=== PATIENT | female | born 1950 | race Caucasian/White ===

== ENCOUNTER → 2017-09-04 13:39 | Outpatient (REF) | payer MEDICARE, OTHER, SELFPAY | LOC: LAB 13:39 | PROVIDERS: Family Provider Family Medicine; PCP Family Medicine; Visit Provider Nurse Practitioner Family | DX: L60.8 Other nail disorders (principal) | CPT/HCPCS: 87070; 87075; 87077; 87186; 87205 ==

== ENCOUNTER → 2018-08-19 08:41 | Outpatient (CLI) | payer MEDICARE, OTHER, SELFPAY ==
--- NOTE | 2018-08-19 | DI.MG.S_ITS ---
BILATERAL DIGITAL SCREENING MAMMOGRAM 3D/2D WITH CAD: 08/19/2018 CLINICAL: Routine screening. Comparison is made to exams dated: 08/20/2016 mammogram, 07/06/2015 mammogram, 05/06/2014 mammogram, 12/10/2012 mammogram, 10/03/2011 mammogram, and 08/10/2010 mammogram - [facility]. The tissue of both breasts is heterogeneously dense. This may lower the sensitivity of mammography. Current study was also evaluated with a Computer Aided Detection (CAD) system. There is a circular mole marker on the left breast. There is a linear scar marker overlying the left breast. No significant masses, calcifications, or other findings are seen in either breast. There has been no significant interval change. IMPRESSION: NEGATIVE There is no mammographic evidence of malignancy. A 1 year screening mammogram is recommended. This exam was interpreted at Station ID: [id number]. NOTE: For mammograms, a report in lay terms will be sent to the patient. Approximately 15% of breast malignancies will not be visualized mammographically. In the management of a palpable breast mass, a negative mammogram must not discourage biopsy of a clinically suspicious lesion. Electronically Signed By: Eduard Ochoa M.D. ecl/:08/20/2018 12:04:33 letter sent: Normal Exam ACR BI-RADS Category 1: Negative [id number]
== END ==
PROVIDERS: PCP Family Medicine; Visit Provider Family Medicine
DX: Z12.31 Encounter for screening mammogram for malignant neoplasm of breast (principal)
CPT/HCPCS: 77063; 77067

== ENCOUNTER → 2018-12-17 19:48 | Outpatient (CLI) | payer MEDICARE, OTHER, SELFPAY | PROVIDERS: PCP Family Medicine; Visit Provider Physician Assistant | DX: N30.01 Acute cystitis with hematuria (principal) | CPT/HCPCS: 87077; 87086; 87186 ==

== ENCOUNTER → 2019-02-15 09:36 | Outpatient (CLI) | payer MEDICARE, OTHER, SELFPAY ==
--- NOTE | 2019-02-15 | DI.US.S_ITS ---
ULTRASOUND OF LEFT BREAST: 02/15/2019 CLINICAL: Palpable left breast lump. Comparison is made to exams dated: 08/19/2018 mammogram, 08/20/2016 mammogram, 07/06/2015 mammogram, and 05/06/2014 mammogram - [facility]. Real-time ultrasound of the left breast was performed. Smith scale images of the real-time examination were reviewed. No significant abnormalities were seen sonographically in the left breast. IMPRESSION: NEGATIVE There is no sonographic evidence of malignancy. There is no abnormality seen in the left breast to correspond with the area of clinical concern and palpable abnormality in the anterior depth in the upper outer quadrant, however, clinical followup is recommended for persistent or worsening symptoms. Return to annual mammogram screening schedule is recommended. Bilateral screening mammogram is due in approximately six months. This exam was interpreted at Station ID: [id number]. Electronically Signed By: Mauricio Bailey M.D. aty/:02/15/2019 16:34:13 letter sent: Normal Exam Ultrasound BI-RADS: 1 Negative
--- NOTE | 2019-02-15 | DI.MG.S_ITS ---
UNILATERAL LEFT DIGITAL DIAGNOSTIC MAMMOGRAM 3D/2D: 02/15/2019 CLINICAL: Left breast lump. Comparison is made to exams dated: 08/19/2018 mammogram, 08/20/2016 mammogram, 07/06/2015 mammogram, 12/10/2012 mammogram, 10/03/2011 mammogram, and 08/10/2010 mammogram - [facility]. The tissue of left breast is heterogeneously dense. This may lower the sensitivity of mammography. No significant masses, calcifications, or other findings are seen in the breast. IMPRESSION: INCOMPLETE: NEEDS ADDITIONAL IMAGING EVALUATION There is no abnormality seen in the left breast to correspond with the area of clinical concern and palpable abnormality indicated by triangular marker in the anterior depth in the upper outer quadrant, however, ultrasound is recommended for further evaluation which is scheduled to immediately follow this examination. This exam was interpreted at Station ID: [id number]. NOTE: For mammograms, a report in lay terms will be sent to the patient. Approximately 15% of breast malignancies will not be visualized mammographically. In the management of a palpable breast mass, a negative mammogram must not discourage biopsy of a clinically suspicious lesion. Electronically Signed By: Mauricio Bailey M.D. aty/:02/15/2019 16:31:21 ACR BI-RADS Category 0: Incomplete [id number]
== END ==
PROVIDERS: PCP Family Medicine; Visit Provider Family Medicine
DX: R92.8 Other abnormal and inconclusive findings on diagnostic imaging of breast (principal); N63.20 Unspecified lump in the left breast, unspecified quadrant
CPT/HCPCS: 76642; 77065; G0279

== ENCOUNTER → 2019-09-29 16:06 | Outpatient (CLI) | payer MEDICARE, OTHER, SELFPAY ==
--- NOTE | 2019-09-29 | DI.MG.S_ITS ---
BILATERAL DIGITAL SCREENING MAMMOGRAM 3D/2D WITH CAD: 09/29/2019 CLINICAL: Routine screening. Comparison is made to exams dated: 02/15/2019 mammogram, 08/19/2018 mammogram, 08/20/2016 mammogram, and 07/06/2015 mammogram - [facility]. The tissue of both breasts is heterogeneously dense. This may lower the sensitivity of mammography. Current study was also evaluated with a Computer Aided Detection (CAD) system. There are grouped fine punctate calcifications in the right breast at 7 o'clock posterior depth. These are more prominent and increased in number. No other significant masses, calcifications, or other findings are seen in either breast. IMPRESSION: INCOMPLETE: NEEDS ADDITIONAL IMAGING EVALUATION The grouped fine punctate calcifications in the right breast are indeterminate. Mediolateral, spot magnification, and additional views are recommended. This exam was interpreted at Station ID: [id number]. NOTE: For mammograms, a report in lay terms will be sent to the patient. Approximately 15% of breast malignancies will not be visualized mammographically. In the management of a palpable breast mass, a negative mammogram must not discourage biopsy of a clinically suspicious lesion. Electronically Signed By: Mauricio johnson/leroy:09/29/2019 18:10:15 letter sent: Additional Imaging Needed ACR BI-RADS Category 0: Incomplete [id number]
== END ==
PROVIDERS: PCP Family Medicine; Referring Provider Family Medicine; Visit Provider Family Medicine
DX: Z12.31 Encounter for screening mammogram for malignant neoplasm of breast (principal)
CPT/HCPCS: 77063; 77067

== ENCOUNTER → 2020-09-18 13:47 | Outpatient (CLI) | payer MEDICARE, OTHER, SELFPAY ==
[2020-09-18 15:27] LABS: Alanine Aminotransferase 20 IU/L (<35); Albumin 4.1 g/dL (3.5-5.0); Albumin Globulin Ratio 1.5 (1.0-2.8); Alkaline Phosphatase 52 U/L (38-126); Aspartate Aminotransferase 32 IU/L (14-36); BUN Creatinine Ratio 17.5 (6-22); Bilirubin Total 1.4 mg/dL (0.2-1.3); Blood Urea Nitrogen 11 mg/dL (7-17); Calcium 9.1 mg/dL (8.4-10.2); Carbon Dioxide 28 mmol/L (22-32); Chloride 107 mmol/L (98-107); Cholesterol 177 mg/dL (140-199); Estimated Glomerular Filt Rate > 60.0 mL/min (>60); Globulin 2.7 g/dL (1.7-4.1); Glucose 93 mg/dL (80-110); HDL Cholesterol 71 mg/dL (40-60); HEMOLYSIS < 15 (0-50); LDL Cholesterol Calculated 91 mg/dL (<100); Potassium 3.8 mmol/L (3.4-5.1); Sodium 139 mmol/L (137-145); Total Protein 6.8 g/dL (6.3-8.2); Triglycerides 75 mg/dL (35-150)
[2020-09-18 15:39] LABS: Add Manual Diff / Slide Review NO; Basophils Absolute Auto 0 /uL (0-100); Basophils Percent Auto 0.4 % (0-2); Eosinophils Absolute Auto 300 /uL (0-450); Eosinophils Percent Auto 4.6 % (2-4); Hematocrit 39.1 % (36-46); Hemoglobin 13.2 g/dL (12.0-16.0); Lymphocytes Absolute Auto 2100 /uL (1100-4500); Lymphocytes Percent Auto 35.6 % (25-40); Mean Corpuscular HGB Conc 33.8 % (30-36); Mean Corpuscular Hemoglobin 33.4 PG (26-34); Mean Corpuscular Volume 98.7 fL (80-100); Monocytes Absolute Auto 400 /uL (0-900); Monocytes Percent Auto 6.2 % (3-14); Neutrophils Absolute Auto 3100 /uL (1500-7000); Neutrophils Percent Auto 53.2 % (50-75); Platelet Count 172 X10^3/uL (150-400); Red Blood Cell Count 3.96 X10^6/uL (4.0-5.2); Red Cell Distribution Width 13.7 % (11.6-14.8); White Blood Cell Count 5.8 X10^3/uL (4.5-11.0)
[2020-09-18 16:07] LABS: Hemoglobin A1C% w Est Avg Glu 5.2 % (4.0-6.0)
[2020-09-18 16:34] LABS: Thyroid Stimulating Hormone 0.778 uIU/mL (0.47-4.68)
== END ==
PROVIDERS: PCP Family Medicine; Referring Provider Family Medicine; Visit Provider Family Medicine
DX: E78.5 Hyperlipidemia, unspecified (principal); I10 Essential (primary) hypertension; R73.09 Other abnormal glucose; E03.9 Hypothyroidism, unspecified; Z79.890 Hormone replacement therapy; Z79.899 Other long term (current) drug therapy
CPT/HCPCS: 36415; 80053; 80061; 83036; 84443; 85025

== ENCOUNTER → 2021-11-05 08:15 | Outpatient (CLI) | payer MEDICARE, OTHER, SELFPAY ==
--- NOTE | 2021-11-05 08:38 | DI.MRI.S_ITS ---
PROCEDURE: MR ANKLE RT WO CON INDICATIONS: Pain in right ankle and joints of right foot TECHNIQUE: Noncontrast sagittal T1 spin echo and T2 fast spin echo with fat saturation, axial proton density fast spin echo and T2 fast spin echo with fat saturation, coronal T1 spin echo and T2 fast spin echo with fat saturation through the ankle/hindfoot. COMPARISON: None. FINDINGS: Image quality: Excellent. Bones and joints: No bone marrow contusions or fractures. No hindfoot coalitions. No osteochondral injuries of the talar dome. No pathologic joint effusions. Medial structures: The posterior tibialis, flexor digitorum longus, and flexor hallucis longus tendons are intact, and demonstrates small amounts of surrounding fluid. The posterior tibial neurovascular bundle appears normal within the tarsal tunnel, without extrinsic mass effect. The deep layer (anterior and posterior tibiotalar ligaments) and superficial layer (tibionavicular, tibiospring, and tibiocalcaneal ligaments) of the deltoid ligament appear normal. The spring ligament components (superomedial calcaneonavicular, medioplantar oblique calcaneonavicular, and inferoplantar longitudinal ligaments) are intact. Lateral structures: The anterior talofibular, calcaneofibular, and posterior talofibular ligaments appear intact. More superiorly, the anterior and posterior tibiofibular ligaments appear intact, as is the intermalleolar ligament. The tibiofibular syndesmosis is normal in width at 2 mm or less. The peroneus longus and brevis tendons demonstrate normal location and small amounts of surrounding fluid Adjacent bony peroneal tubercle and retrotrochlear prominence are normal in size. The sinus tarsi demonstrates normal fatty signal, without edema, fibrosis, or cyst formation. Visualized sinus tarsi components (cervical ligament, interosseous talocalcaneal ligament, roots of the inferior extensor retinaculum) appear normal. The calcaneonavicular and calcaneocuboid components of the bifurcate ligament appear intact. The dorsal calcaneocuboid ligament appears intact. Anterior structures: The tibialis anterior, extensor hallucis longus, and extensor digitorum longus tendons appear intact. The dorsal talonavicular ligament appears intact. Posterior and plantar structures: There is mild thickening of the Achilles tendon, roughly 40 mm proximal to the calcaneal insertion site. And there are a few small high T2 intensity foci within the mid and distal Achilles tendon. Moderate T2 signal elevation within the pre Achilles fat. Medial and lateral bands of the plantar fascia are of normal thickness. No abductor digiti quinti muscle atrophy to suggest Teague neuropathy. IMPRESSION: 1. Achilles tendinopathy with small low-grade tears. Peritendinitis is present. 2. Medial and lateral flexor tenosynovitis. Dictated by: Cortes Chinchilla M.D. on 11/05/2021 at 9:19 Approved by: Cortes Chinchilla M.D. on 11/05/2021 at 9:22
== END ==
PROVIDERS: PCP Family Medicine; Referring Provider Family Medicine; Visit Provider Family Medicine
DX: M76.61 Achilles tendinitis, right leg (principal); M65.871 Other synovitis and tenosynovitis, right ankle and foot; M25.571 Pain in right ankle and joints of right foot; Z79.890 Hormone replacement therapy
CPT/HCPCS: 73721

== ENCOUNTER → 2022-01-25 14:32 | Outpatient (CLI) | payer MEDICARE, OTHER, SELFPAY | PROVIDERS: PCP Family Medicine; Referring Provider Family Medicine; Visit Provider Family Medicine | DX: Z78.0 Asymptomatic menopausal state (principal); M85.852 Other specified disorders of bone density and structure, left thigh; M06.9 Rheumatoid arthritis, unspecified; Z92.23 Personal history of estrogen therapy | CPT/HCPCS: 77080 ==

== ENCOUNTER → 2022-06-21 15:12 | Outpatient (CLI) | payer MEDICARE, OTHER, SELFPAY ==
--- NOTE | 2022-06-21 | DI.RAD.S_ITS ---
PROCEDURE: XR KNEE RT 3V INDICATIONS: right knee pain TECHNIQUE: 3 views of the knee were acquired. COMPARISON: None. FINDINGS: Bones: No fractures or dislocations. No suspicious bony lesions. Soft tissues: Small suprapatellar joint effusion. No suspicious soft tissue calcifications. IMPRESSION: Moderate degenerative knee joint osteoarthritis as indicated by mild narrowing of the medial and lateral compartment joint interspace. Slight medial subluxation of the femoral condyles at the tibial plateau is associated. There is a small suprapatellar joint effusion. Dictated by: Nathaniel Pink M.D. on 06/21/2022 at 16:01 Approved by: Nathaniel Pink M.D. on 06/21/2022 at 16:02
== END ==
PROVIDERS: PCP Family Medicine; Referring Provider Family Medicine; Visit Provider Family Medicine
DX: M17.11 Unilateral primary osteoarthritis, right knee (principal); M25.461 Effusion, right knee; M25.561 Pain in right knee
CPT/HCPCS: 73562

== ENCOUNTER → 2022-11-28 12:17 | Outpatient (ROUT) | payer MEDICARE, OTHER, SELFPAY ==
[2022-11-28 13:01] LABS: Influenza A - CEPHEID Flu A NEGATIVE (NEGATIVE); Influenza B - CEPHEID Flu B NEGATIVE (NEGATIVE); Respiratory Syncytial Virus Negative (Negative)
[2022-11-28 13:56] LABS: COVID-19 CEPHEID 4-PLEX PCR Negative (Negative)
== END ==
PROVIDERS: PCP Family Medicine; Visit Provider Registered Nurse
DX: Z11.59 Encounter for screening for other viral diseases (principal); R50.9 Fever, unspecified
CPT/HCPCS: 0241U

== ENCOUNTER → 2024-08-16 11:05 | Outpatient (CLI) | payer MEDICARE, OTHER, SELFPAY ==
--- NOTE | 2024-08-16 11:08 | DI.US.S_ITS ---
PROCEDURE: US PERIPH VENOUS LOW EXTREM LT INDICATIONS: SWELLING/GROIN PAIN TECHNIQUE: Real-time imaging, as well as color and pulse Doppler interrogation, were performed of the lower extremity deep veins from the inguinal ligament to the popliteal fossa, with documentation of the visualized calf veins. COMPARISON: None. FINDINGS: The common femoral, femoral, popliteal, and the visualized calf veins are normally compressible, and free of intraluminal thrombus. Color and pulse Doppler demonstrate normal phasic intraluminal flow. There is normal augmentation response to distal compression maneuver. IMPRESSION: No findings of lower extremity deep venous thrombosis. Dictated by: Zhao Miller M.D. on 08/16/2024 at 12:01 Approved by: Zhao Miller M.D. on 08/16/2024 at 12:01
== END ==
LOC: US 11:06
PROVIDERS: PCP Family Medicine; Referring Provider Family Medicine; Visit Provider Family Medicine
DX: M79.89 Other specified soft tissue disorders (principal); R10.32 Left lower quadrant pain
CPT/HCPCS: 93971

== ENCOUNTER → 2024-08-19 11:22 | Outpatient (CLI) | payer MEDICARE, OTHER, SELFPAY ==
--- NOTE | 2024-08-19 | DI.RAD.S_ITS ---
PROCEDURE: XR HIP W PEL IF DONE RT 2V INDICATIONS: Pain in right hip TECHNIQUE: AP pelvis with lateral view(s) of the right hip(s). COMPARISON: None. FINDINGS: Bones: No fractures or dislocations. Mild osteoarthritic degenerative change of the right hip includes joint space narrowing, marginal osteophytosis and acetabular subchondral sclerosis. Pelvic ring appears intact. No suspicious bony lesions. Soft tissues: The visualized bowel gas pattern is normal. No suspicious soft tissue calcifications. IMPRESSION: Mild degenerative change of the right hip without evidence of acute bony abnormality. Dictated by: Lawrence Carr M.D. on 08/20/2024 at 2:55 Approved by: Lawrence Carr M.D. on 08/20/2024 at 2:56
--- NOTE | 2024-08-19 | DI.RAD.S_ITS ---
PROCEDURE: XR LUMBAR SPINE 2-3V INDICATIONS: Pain in right hip TECHNIQUE: 3 views of the lumbar spine were acquired. COMPARISON: None. FINDINGS: Bones: 5 [id number] vertebrae are present. There is partial sacralization of L5. Severe L4-L5 and moderate to severe L2-L3 and L3-L4 disc height loss with adjacent endplate sclerosis and mild multilevel anterior osteophytosis. There is normal bony alignment. No vertebral body compression fractures. No suspicious bony lesions. Soft tissues: Overlying bowel gas pattern is normal. No suspicious soft tissue calcifications. IMPRESSION: Degenerative change of the lower lumbar spine without evidence of acute osseous abnormality. Dictated by: Lawrence Carr M.D. on 08/20/2024 at 2:56 Approved by: Lawrence Carr M.D. on 08/20/2024 at 2:58
== END ==
PROVIDERS: PCP Family Medicine; Referring Provider Family Medicine; Visit Provider Family Medicine
DX: M47.816 Spondylosis without myelopathy or radiculopathy, lumbar region (principal); M25.551 Pain in right hip; M79.89 Other specified soft tissue disorders
CPT/HCPCS: 72100; 73502

== ENCOUNTER 2024-10-19 03:15 | Emergency (ER) | payer MEDICARE, OTHER, SELFPAY ==
[2024-10-19 03:29] VITALS: BP 150/86; PULSE 93; RESP 18; TEMP 37.2; O2SAT 96; BMI 25.1
[2024-10-19 03:47] LABS: Ictotest Urine Negative (Negative)
[2024-10-19 03:50] LABS: Culture Indicated Urine Specimen Cultured
--- NOTE | 2024-10-19 03:50 | PC.NURSE ---
Prashanth from lab states dipstick results should be considered invalid. States urine is orange in color from Azo. States he will do a microscopic at this time. Dr. Fitzgerald made aware.
--- NOTE | 2024-10-19 03:58 | ED_ITS ---
HPI - Female Genitourinary General Chief complaint: Urogenital-Female Stated complaint: UTI Time Seen by Provider: 10/19/24 03:50 Source: patient Mode of arrival: Ambulatory History of Present Illness HPI Narrative: 74-year-old female has painful frequent urination. No nausea or vomiting. No back pain. No fevers or chills. No current or recent antibiotics taken. She has tried [id number] azo with little relief. She had allergies to penicillins and cephalosporin antibiotics. Related Data Home Medications ?Medication ?Instructions ?Recorded ?Confirmed atorvastatin [Lipitor] PO 12/17/18 12/17/18 cholecalciferol (vitamin D3) PO 12/17/18 12/17/18 levothyroxine [Synthroid] PO 12/17/18 12/17/18 loratadine [Claritin] PO 12/17/18 12/17/18 Previous Rx's ?Medication ?Instructions ?Recorded phenazopyridine 100 mg tablet 100 mg PO TID PRN pain 6 doses #6 12/17/18 (Pyridium) tabs nitrofurantoin 100 mg PO Q12H 7 days #14 ca ps 10/19/24 monohydrate/macrocrystals 100 mg capsule (Macrobid) phenazopyridine 200 mg tablet 200 mg PO TID PRN pain # 10 tabs 10/19/24 (Pyridium) Allergies Allergy/AdvReac Type Severity Reaction Status Date / Time ampicillin Allergy Severe ANAPHYLAXIS Verified 10/19/24 03:29 Cephalosporins Allergy Severe ANAPHYLAXIS Verified 10/19/24 03:29 Penicillins Allergy Severe ANAPHYLAXIS Verified 10/19/24 03:29 chlorhexidine (CHLORHEXIDINE) Allergy Intermediate SEVERE Verified 10/19/24 03:29 SKIN RASH meperidine (From DEMEROL) Allergy Mild N/V Verified 10/19/24 03:29 Exam Narrative Exam Narrative: GENERAL: Well-developed patient, in mild distress. HEAD: Atraumatic. Normocephalic. EYES: Pupils equal round and reactive. Extraocular motions intact. No scleral icterus. No injection or drainage. ENT: Nose without bleeding, purulent drainage. Throat without erythema, tonsillar hypertrophy or exudate. Airway patent. NECK: Trachea midline. Non tender CARDIOVASCULAR: Regular rate and rhythm without murmurs, gallops, or rubs. RESPIRATORY: Clear to auscultation. Breath sounds equal bilaterally. No wheezes, rales, or rhonchi. GASTROINTESTINAL: Abdomen soft, non-tender, nondistended. EXTREMITIES: No edema or joint tenderness. BACK: Nontender without deformity or crepitance. No flank tenderness. NEURO: AOx3. Motor functions grossly nonfocal. SKIN: No rash or erythema of visible areas Initial Vital Signs Initial Vital Signs: Vital Signs Temperature 98.9 F 10/19/24 03:29 Pulse Rate 93 H 10/19/24 03:29 Respiratory Rate 18 10/19/24 03:29 Blood Pressure 150/86 H 10/19/24 03:29 Pulse Oximetry 96 10/19/24 03:29 Oxygen Delivery Method Room Air 10/19/24 03:29 Course Orders Ordered: ED Orders 10/19/24 03:20 Ictotest Urine Stat Urine Culture Stat Urine Culture Stat Urine Microscopic Stat Discontinued Medications Nitrofurantoin Macrocrystals (Nitrofurantoin Er 100 Mg Capsule) 100 mg PO NOW ONE Stop: 10/19/24 04:06 Last Admin: 10/19/24 04:10 Dose: 100 mg Documented By: RUPAL Phenazopyridine HCl (Phenazopyridine 100 Mg Tablet) 200 mg PO NOW ONE Stop: 10/19/24 04:06 Last Admin: 10/19/24 04:10 Dose: 200 mg Documented By: RUPAL Vital Signs Vital signs: Vital Signs - 8 hr 10/19/24 03:29 Temperature 98.9 F Pulse Rate 93 H Respiratory Rate 18 Blood Pressure 150/86 H Pulse Oximetry 96 Oxygen Delivery Method Room Air MDM - Female Genitourinary Lab Data Attestation: I reviewed the patient's lab results. Lab results narrative: Urinalysis suspicious for infection, urine culture triggered by protocol. Labs: Lab Results 10/19/24 Range/Units 03:20 Ur Bilirubin Confirm Negative (Negative) Urine RBC None seen (0-5/HPF) Urine WBC 5-10/hpf H (0-5/HPF) Ur Squamous Epith Cells 1-5 /hpf (0-5/HPF) Urine Bacteria Few (2-10) H (None) Ur Culture Indicated? Specimen cultured Vol Urine Centrifuged 10ml (spun) Urine Dip Bedside Urine Glucose 100 mg/dl Bedside Urine Bilirubin ++ 2 Bedside Urine Ketone - Negative Urine Specific Cocoa 1.010 Bedside Urine Occult Blood +++ Bedside Urine pH 6.0 Bedside Urine Protein - Negative Bedside Urine Urobilinogen 2+ 4mg Bedside Urine Nitrite + Positive Bedside Urine Leukocytes +++ 500 Esterase MDM Narrative Medical decision making narrative: 74-year-old female with dysuria and frequency of urination, afebrile, no nausea or vomiting, no CVA region tenderness, symptoms suspicious for cystitis. Urinalysis suspicious for infection, urine culture pending. History of allergy to penicillins and to cephalosporins. Given dose of oral nitrofurantoin/Macrobid antibiotic, prescription sent for 7 day course. Pyridium dose given orally, additional doses given by prescription. Advised to take antibiotic and Pyridium as directed. Drink plenty of fluids. Sxwn-[id number] analgesics as needed. Advised to recheck with the regular doctor in the next couple of days if not improving. Return precautions discussed. Discharged home with . Discharge Plan Departure Patient Disposition: Home Clinical Impression: Urinary tract infection Instructions: DI for Urinary Tract Infection (UTI) Activity Restrictions/Additional Instructions: Painful frequent urination, not currently on antibiotics. No fever on triage. No back pain nausea or vomiting. No history of kidney stones known. Urinalysis suspicious for infection, urine culture pending. Oral dose antibiotic nitrofurantoin given, with bladder analgesic Pyridium. Further prescriptions for both of these medication sent to your pharmacy. Drink plenty of fluids. Take Tylenol and or Motrin as needed for pain control. Take the Pyridium in the nitrofurantoin antibiotics as directed. Recheck symptoms if not improving in the next couple of days. Return to this/nearest emergency department for any change worsening symptoms or any concerns prior. Prescriptions: New phenazopyridine [Pyridium] 200 mg tablet 200 mg PO TID PRN (Reason: pain) Qty: 10 0RF nitrofurantoin monohyd/m-cryst [Macrobid] 100 mg capsule 100 mg PO Q12H 7 Days Qty: 14 0RF Rx Instructions: must administer with a meal/food No Action levothyroxine [Synthroid] PO atorvastatin [Lipitor] PO loratadine [Claritin] PO cholecalciferol (vitamin D3) PO phenazopyridine [Pyridium] 100 mg tablet 100 mg PO TID PRN (Reason: pain) 0 Days Qty: 6 0RF Referrals: Kevin Elizondo MD [Primary Care Provider, Family Practice] Stand Alone Forms: Patient Portal/API
[2024-10-19] MEDS: PHENAZOPYRIDINE 100 MG TABLET 200 MG PO (04:10)
[2024-10-19] MEDS: NITROFURANTOIN ER 100 MG CAPSULE PO (04:10)
== END 2024-10-19 04:15 | disposition home or self-care (01) ==
PROVIDERS: Emergency Provider Emergency Medicine; PCP Family Medicine
DX: N39.0 Urinary tract infection, site not specified (principal); Z88.0 Allergy status to penicillin
CPT/HCPCS: 81003; 81015; 87077; 87086; 87186; 99283